=== PATIENT | female | born 1945 | race Caucasian/White ===

== ENCOUNTER 2019-09-08 08:34 | Emergency (ER) | payer MEDICARE, BC, SELFPAY ==
[2019-09-08 08:44] VITALS: BP 185/95; PULSE 63; RESP 18; TEMP 36.8; O2SAT 96; BMI 27.4
--- NOTE | 2019-09-08 08:50 | DI.RAD.S_ITS ---
PROCEDURE: XR CHEST 1V INDICATIONS: cardiac / neuro eval TECHNIQUE: One view of the chest was acquired. COMPARISON: None. FINDINGS: Surgical changes and devices: None. Lungs and pleura: Lungs are clear. No pleural effusions or pneumothorax. Mediastinum: Mediastinal contours appear normal. Heart size is normal. Bones and chest wall: No suspicious bony lesions. Overlying soft tissues appear unremarkable. IMPRESSION: No acute cardiopulmonary disease process. Dictated by: Josi Huertas MD, PhD on 09/08/2019 at 8:18 Approved by: Josi Huertas MD, PhD on 09/08/2019 at 8:18
--- NOTE | 2019-09-08 08:54 | DI.CT.S_ITS ---
PROCEDURE: CT HEAD/BRAIN WO CON INDICATIONS: arm numbness TECHNIQUE: Noncontrast 4.5 mm thick angled axial sections acquired from the foramen magnum to the vertex, with coronal and sagittal reformats. For radiation dose reduction, the following was used: automated exposure control, adjustment of mA and/or kV according to patient size. COMPARISON: None. FINDINGS: Image quality: Excellent. CSF spaces: Basal cisterns are patent. No extra-axial fluid collections. The ventricles are symmetric in size and shape. Brain: No intracranial bleeds or masses. There is mild cerebral volume loss for age, with resultant ventricular and sulcal prominence. There are no periventricular and deep white matter chronic small vessel ischemic changes. There is intracranial internal carotid artery atherosclerosis. Skull and face: Calvarium and visualized facial bones appear intact, without suspicious lesions. Sinuses: Complete opacification of the visualized left maxillary sinus with diffuse visualized left maxillary sinus wall thickening. The mastoids are clear. IMPRESSION: 1. No acute intracranial disease process. 2. Severe, chronic left maxillary sinusitis. Dictated by: Josi Huertas MD, PhD on 09/08/2019 at 8:47 Approved by: Josi Huertas MD, PhD on 09/08/2019 at 8:55
[2019-09-08 08:59] LABS: Add Manual Diff / Slide Review NO; Basophils Absolute Auto 100 /uL (0-100); Basophils Percent Auto 1.1 % (0-2); Eosinophils Absolute Auto 0 /uL (0-450); Eosinophils Percent Auto 0.1 % (2-4); Hematocrit 41.2 % (36-46); Hemoglobin 13.9 g/dL (12.0-16.0); Lymphocytes Absolute Auto 1800 /uL (1100-4500); Mean Corpuscular HGB Conc 33.8 % (30-36); Mean Corpuscular Hemoglobin 31.6 PG (26-34); Mean Corpuscular Volume 93.6 fL (80-100); Monocytes Absolute Auto 500 /uL (0-900); Monocytes Percent Auto 9.1 % (3-14); Neutrophils Absolute Auto 3200 /uL (1500-7000); Neutrophils Percent Auto 57.7 % (50-75); Platelet Count 261 X10^3/uL (150-400); Red Blood Cell Count 4.41 X10^6/uL (4.0-5.2); Red Cell Distribution Width 12.6 % (11.6-14.8); White Blood Cell Count 5.5 X10^3/uL (4.5-11.0)
[2019-09-08 09:12] LABS: Alanine Aminotransferase 18 IU/L (9-52); Albumin 4.3 g/dL (3.5-5.0); Albumin Globulin Ratio 1.3 (1.0-2.8); Alkaline Phosphatase 84 U/L (38-126); Aspartate Aminotransferase 29 IU/L (14-36); Bilirubin Total 0.5 mg/dL (0.2-1.3); Blood Urea Nitrogen 18 mg/dL (7-17); Calcium 9.2 mg/dL (8.4-10.2); Carbon Dioxide 26 mmol/L (22-32); Chloride 103 mmol/L (98-107); Creatine Kinase 207 U/L (30-135); Estimated Glomerular Filt Rate > 60.0 mL/min (>60); Globulin 3.4 g/dL (1.7-4.1); Glucose 105 mg/dL (80-110); HEMOLYSIS < 15 (0-50); Lipase 57 U/L (23-300); Potassium 4.2 mmol/L (3.4-5.1); Sodium 140 mmol/L (137-145); Total Protein 7.7 g/dL (6.3-8.2)
[2019-09-08 09:23] LABS: Troponin I < 0.012 ng/mL (0.01-0.034)
[2019-09-08 09:25] VITALS: BP 151/79; PULSE 57; RESP 12; O2SAT 94
[2019-09-08 09:28] LABS: CKMB % Relative Index 1.6 % (1.5-5.0); Creatine Kinase MB 3.37 ng/mL (<2.37)
[2019-09-08] MEDS: ASPIRIN 81 MG CHEW TAB 324 MG PO (09:31)
[2019-09-08] MEDS: SODIUM CHLORIDE 0.9% 1,000 ML 150 ML IV (09:31)
--- NOTE | 2019-09-08 10:25 | PC.NURSE ---
Patient with intermittent chest pressure for the last 6 months. Intermittent episodes of dizziness. Urine specimen obtained. Patient denies needs at this time. Resting comfortably, pain 0/10 and notices no further tingling in extremities.
[2019-09-08 10:26] VITALS: BP 144/85; PULSE 58; RESP 16; O2SAT 96
--- NOTE | 2019-09-08 10:52 | ED_ITS ---
HPI - Chest Pain General Chief Complaint: Chest Pain Stated Complaint: left arm and chest numbness/tingling x5 weeks Time Seen by Provider: 09/08/19 08:35 Source: patient Mode of arrival: Ambulatory Limitations: no limitations History of Present Illness HPI narrative: 73-year-old female nonsmoker with hypothyroid presents with a chief complaint of 5 weeks of left hand and arm numbness and tingling. She denies any pain nor any weakness. She denies any neck injury or history of the same. She is right handed. She denies any other neurologic symptoms such as blurred vision, trouble with speech nor trouble ambulating. She denies any chest pain or shortness of breath but does state that yesterday the numbness and tingling in her arm might have gone into her chest. She denies any recent long- distance travel or history of clot. She is otherwise well and free of complaint MD complaint: other Onset (ago): week(s) Duration: intermittent Onset: other Severity: mild Quality: other Relieving factors: nothing Exacerbating factors: nothing Associated symptoms: other Treatments prior to arrival chest pain: none Related Data Home Medications Medication Instructions Recorded Confirmed Calcium 500 3 tab PO DAILY 09/08/19 09/08/19 carbamazepine 400 mg PO BID 09/08/19 09/08/19 conjugated estrogens [Premarin] 1 applic VAGINAL 3XW 09/08/19 09/08/19 cyanocobalamin (vitamin B-12) 1,000 mcg IM QMONTH 09/08/19 09/08/19 levothyroxine 137 mcg PO DAILY 09/08/19 09/08/19 multivitamin with minerals 1 tab PO DAILY 09/08/19 09/08/19 triamcinolone acetonide 1 applic TOPICAL DAILY 09/08/19 09/08/19 Allergies Allergy/AdvReac Type Severity Reaction Status Date / Time quinine Allergy Intermediate Verified 09/08/19 10:31 Review of Systems Constitutional Constitutional: Denies chills, Denies fatigue, Denies fever(s), Denies frequent falls, Denies lethargy and Denies weakness Eyes Eyes: Denies change in vision, Denies eye discharge, Denies irritation and Denies loss of vision ENT Ears, Nose, Mouth, and Throat: Denies change in voice, Denies dizziness, Denies neck pain, Denies sore throat and Denies throat swelling Cardiovascular Cardiovascular: Denies chest pain, Denies irregular heart rhythm, Denies lightheadedness, Denies palpitations, Denies dyspnea, Denies dyspnea on exertion and Denies orthopnea Respiratory Respiratory: Denies cough, Denies dyspnea, Denies dyspnea on exertion and Denies wheezing Gastrointestinal Gastrointestinal: Denies abdominal pain, Denies change in bowel habits, Denies diarrhea, Denies nausea and Denies vomiting Genitourinary Genitourinary: Denies hematuria, Denies flank pain, Denies urinary incontinence and Denies urinary urgency Musculoskeletal Musculoskeletal: Denies back pain, Denies muscle weakness, Denies neck pain, Denies numbness and Denies tingling Integumentary/Breasts Skin/Breast: Denies pruritus, Denies erythema, Denies rash and Denies wounds Neurologic Neurologic: Denies behavioral changes, Denies confusion, Denies dizziness, Denies frequent falls, Denies loss of vision, Denies numbness, Denies tingling, Reports paresthesias and Denies weakness Psychiatric Psychiatric: Denies anxiety, Denies behavioral changes, Denies confusion, Denies depression, Denies homicidal ideation and Denies suicidal ideation Endocrine Endocrine: Denies fatigue, Denies flushing and Denies palpitations Hematologic/Lymphatic Hematologic/Lymphatic: Denies easy bruising Allergic/Immunologic Allergic/Immunologic: Denies urticaria, Denies throat swelling and Denies wheezing PFSH Social History Smoking Status: Never smoker Social History Smoking Status: Never smoker Exam Narrative Exam Narrative: GENERAL: [73] year old patient appears stated age. Well- nourished, well-developed patient, in mild distress. HEAD: Atraumatic. Normocephalic. EYES: Pupils equal round and reactive. Extraocular motions intact. No scleral icterus. No injection or drainage. ENT: Nose without bleeding, purulent drainage. Throat without erythema, tonsillar hypertrophy or exudate. Airway patent. NECK: Trachea midline. Non tender CARDIOVASCULAR: Regular rate and rhythm without murmurs, gallops, or rubs. RESPIRATORY: Clear to auscultation. Breath sounds equal bilaterally. No wheezes, rales, or rhonchi. GASTROINTESTINAL: Abdomen soft, non-tender, nondistended. EXTREMITIES: No edema or joint tenderness. BACK: Nontender without deformity or crepitance. No flank tenderness. NEURO: AOx3. SKIN: No rash or erythema of visible areas NIH Stroke Scale 1a. LOC: Patient is alert and keenly responsive (0) 1b. LOC Questions: Patient answers both LOC questions accurately (0) 1c. LOC Commands: Patient performs both tasks correctly (0) 2. Best Gaze: Normal (0) 3. Visual: No visual loss (0) 4. Facial palsy: Normal symmetrical movements (0) 5. Motor arm: No drift (0) 6. Motor leg: No drift (0) 7. Limb ataxia: Absent (0) 8. Sensory: Normal (0) 9. Best language: No aphasia; normal (0) 10. Dysarthria: Normal (0) 11. Extinction and inattention: No abnormality (0) NIHSS: 0 Initial Vital Signs Initial Vital Signs: Vital Signs Temperature 98.2 F 09/08/19 08:44 Pulse Rate 63 09/08/19 08:44 Respiratory Rate 18 09/08/19 08:44 Blood Pressure 185/95 H 09/08/19 08:44 Pulse Oximetry 96 09/08/19 08:44 Course Orders Ordered: Discontinued Medications Aspirin (Aspirin Chew) 324 mg PO NOW ONE Stop: 09/08/19 08:50 Last Admin: 09/08/19 09:31 Dose: 324 mg Documented by: ROHIT Sodium Chloride (Normal Saline 0.9%) 1,000 mls @ 150 mls/hr IV CONT MIKY Last Infusion: 09/08/19 12:07 Dose: 150 mls/hr Documented by: Admin: 09/08/19 09:31 Dose: 150 mls/hr Documented by: ROHIT Vital Signs Vital signs: Vital Signs - 8 hr 09/08/19 10:26 09/08/19 11:00 09/08/19 11:30 Pulse Rate 58 L 53 L 55 L Respiratory Rate 16 12 14 Blood Pressure [Right Arm] 144/85 H 126/65 146/75 H Pulse Oximetry 96 95 98 MDM - Chest Pain Lab Data Result diagrams: 09/08/19 08:50 09/08/19 08:50 Labs: Lab Results 09/08/19 09/08/19 Range/Units 08:50 08:50 WBC 5.5 (4.5-11.0) X10^3/uL RBC 4.41 (4.0-5.2) X10^6/uL Hgb 13.9 (12.0-16.0) g/dL Hct 41.2 (36-46) % MCV 93.6 (80-100) fL MCH 31.6 (26-34) PG MCHC 33.8 (30-36) % RDW 12.6 (11.6-14.8) % Plt Count 261 (150-400) X10^3/uL Neut % (Auto) 57.7 (50-75) % Lymph % (Auto) 32.0 (25-40) % [place] % (Auto) 9.1 (3-14) % Eos % (Auto) 0.1 L (2-4) % Baso % (Auto) 1.1 (0-2) % Neut # (Auto) 3200 (8824-3869) /uL Lymph # (Auto) 1800 (0497-3939) /uL [place] # (Auto) 500 (0-900) /uL Eos # (Auto) 0 (0-450) /uL Baso # (Auto) 100 (0-100) /uL Sodium 140 (137-145) mmol/L Potassium 4.2 (3.4-5.1) mmol/L Chloride 103 (98-107) mmol/L Carbon Dioxide 26 (22-32) mmol/L BUN 18 H (7-17) mg/dL Creatinine 0.90 (0.52-1.04) mg/dL Estimated GFR > 60.0 (>60) mL/min BUN/Creatinine Ratio 20.0 (6-22) Glucose 105 (80-110) mg/dL Calcium 9.2 (8.4-10.2) mg/dL Total Bilirubin 0.5 (0.2-1.3) mg/dL AST 29 (14-36) IU/L ALT 18 (9-52) IU/L Alkaline Phosphatase 84 (38-126) U/L Total Creatine Kinase 207 H (30-135) U/L CK-MB (CK-2) 3.37 H (<2.37) ng/mL CK-MB (CK-2) Rel Index 1.6 (1.5-5.0) % Troponin I < 0.012 (0.01-0.034) ng/mL Total Protein 7.7 (6.3-8.2) g/dL Albumin 4.3 (3.5-5.0) g/dL Globulin 3.4 (1.7-4.1) g/dL Albumin/Globulin Ratio 1.3 (1.0-2.8) Lipase 57 (23-300) U/L Urine Dip Bedside Urine Glucose Negative Bedside Urine Bilirubin - Negative Bedside Urine Ketone - Negative Urine Specific [place] 1.020 Bedside Urine Occult Blood +/- Bedside Urine Protein - Negative Bedside Urine Urobilinogen - Negative Bedside Urine Nitrite - Negative Bedside Urine Leukocytes - Negative Esterase Imaging Data CT scan - head: Radiologist's impression: [address] [address] [address] Scan Report Signed Patient: Susanne Sethi GMR#: [id number] : 5Acct:[id number] Age/Sex: 73 / FDate of Service: 09/08/19 Loc: ED Accession Number: [id number] Procedure: CT head/brain wo con Ordering Provider: Trav De Los Santos D.O. PROCEDURE: CT HEAD/BRAIN WO CON INDICATIONS: arm numbness TECHNIQUE: Noncontrast 4.5 mm thick angled axial sections acquired from the foramen magnum to the vertex, with coronal and sagittal reformats. For radiation dose reduction, the following was used: automated exposure control, adjustment of mA and/or kV according to patient size. COMPARISON: None. FINDINGS: Image quality: Excellent. CSF spaces: Basal cisterns are patent. No extra-axial fluid collections. The ventricles are symmetric in size and shape. Brain: No intracranial bleeds or masses. There is mild cerebral volume loss for age, with resultant ventricular and sulcal prominence. There are no periventricular and deep white matter chronic small vessel ischemic changes. There is intracranial internal carotid artery atherosclerosis. Skull and face: Calvarium and visualized facial bones appear intact, without suspicious lesions. Sinuses: Complete opacification of the visualized left maxillary sinus with diffuse visualized left maxillary sinus wall thickening. The mastoids are clear. IMPRESSION: 1. No acute intracranial disease process. 2. Severe, chronic left maxillary sinusitis. Dictated by: Josi Huertas MD, PhD on 09/08/2019 at 8:47 Approved by: Josi Huertas MD, PhD on 09/08/2019 at 8:55 MDM Narrative Medical decision making narrative: Multiple etiologies for patient's symptoms considered including: [Cardiac ischemia versus stroke versus cervical radiculopathy versus other Multiple causes of chest pain considered including VT, PE, pneumothorax, pneumonia, aortic dissection, and pleurisy. Patient reports no radiation, no diaphoresis, no provocation with exertion, and no vomiting. EKG is nonischemic, troponin unremarkable. Stroke thought less likely given lack of significant findings, a normal CT.] Patient's symptoms improved or duration of stay with above-stated therapies. Findings and discharge diagnosis discussed with patient/family followed by verbalization of understanding Return precautions discussed with patient/family whom verbalize understanding. Discharge Plan Departure Patient Disposition: Home Clinical Impression: Paresthesia of arm Discharge Date/Time: 09/08/19 12:05 Instructions: DI for Atypical Chest Pain Activity Restrictions/Additional Instructions: *You have been diagnosed with [atypical chest pain, paresthesia of the left arm. Cardiac evaluation and CT scan of your brain are very reassuring] *What to do: *Take medications as directed. Start Aspirin daily *Follow up with your primary care provider in 2-3 days, call for an appointment. Let them know you were seen in the Emergency Department and that we ask that you be seen in follow up *Return to ER if you should have any new, worsening or concerning symptoms Prescriptions: No Action levothyroxine 137 mcg tablet 137 mcg PO DAILY RF: 0 cyanocobalamin (vitamin B-12) 1,000 mcg/mL solution 1,000 mcg IM QMONTH RF: 0 Premarin 0.625 mg/gram cream 1 applic vaginal 3XW RF: 0 triamcinolone acetonide 0.1 % ointment 1 applic TOPICAL DAILY RF: 0 carbamazepine 200 mg capsule, ER multiphase 12 hr 400 mg PO BID RF: 0 multivitamin with minerals Tablet 1 tab PO DAILY RF: 0 Calcium 500 3 tab PO DAILY RF: 0 Referrals: Imani Moran ARNP [Primary Care Provider] -
[2019-09-08 11:00] VITALS: BP 126/65; PULSE 53; RESP 12; O2SAT 95
[2019-09-08 11:30] VITALS: BP 146/75; PULSE 55; RESP 14; O2SAT 98
== END 2019-09-08 12:05 | disposition home or self-care (01) ==
PROVIDERS: Emergency Provider Emergency Medicine; PCP Nurse Practitioner Family
DX: R20.2 Paresthesia of skin (principal); R07.89 Other chest pain
CPT/HCPCS: 36415; 70450; 71045; 80053; 81003; 82550; 82553; 83690; 84484; 85025; 93005; 99283; 99285

== ENCOUNTER → 2021-06-12 09:40 | Outpatient (CLI) | payer MEDICARE, BC, SELFPAY ==
--- NOTE | 2021-06-12 | DI.MRI.S_ITS ---
PROCEDURE: MR HEAD/BRAIN WO/W CON INDICATIONS: seizures TECHNIQUE: Noncontrast axial T1 spin echo, axial T2 fast spin echo, sagittal and axial FLAIR, coronal T2 fast spin echo, axial gradient echo, axial diffusion and ADC through the brain. Thin-section coronal T2 weighted images were obtained through the hippocampi. After the administration of contrast, axial and coronal T1 spin echo with fat saturation through the brain. COMPARISON: [facility], CT, CT HEAD/BRAIN WO CON, 09/08/2019, 8:54. FINDINGS: Image quality: Excellent. CSF spaces: Basal cisterns are patent. No extra-axial fluid collections. Ventricles are normal in size and shape. Brain: No midline shift. No intracranial bleeds or masses. No abnormal intracranial enhancement. There is cerebral volume loss for age. There is periventricular white matter chronic small vessel ischemic change. The brainstem appears normal. Diffusion-weighted images demonstrate no acute ischemic insults. No chronic ischemic insults. Normal intravascular flow voids are present. The hippocampi demonstrate an unremarkable, symmetric appearance. Skull and face: Calvarial marrow is normal in signal. Orbits appear normal. Note is made of bilateral lens replacements. Sinuses: There is mild mucosal thickening seen within the left maxillary sinus, with minimal mucosal thickening seen elsewhere. There is mild left mastoid air cell fluid seen. IMPRESSION: Normal brain MRI for age, without a cause of seizures identified. The hippocampi demonstrate a normal, symmetric appearance. No masses or abnormal enhancement can be seen. Improved paranasal sinus disease. A Dictated by: Robi Curry M.D. on 06/12/2021 at 10:12 Approved by: Robi Curry M.D. on 06/12/2021 at 10:14
== END ==
PROVIDERS: PCP Internal Medicine; Referring Provider Internal Medicine; Visit Provider Internal Medicine
DX: R56.9 Unspecified convulsions (principal); R51.9 Headache, unspecified; R42 Dizziness and giddiness
CPT/HCPCS: 70553

== ENCOUNTER → 2021-06-13 14:30 | Outpatient (CLI) | payer MEDICARE, BC, SELFPAY | PROVIDERS: PCP Internal Medicine; Referring Provider Internal Medicine; Visit Provider Internal Medicine | DX: M85.88 Other specified disorders of bone density and structure, other site (principal); Z78.0 Asymptomatic menopausal state; E07.9 Disorder of thyroid, unspecified | CPT/HCPCS: 77080 ==

== ENCOUNTER 2021-09-17 15:59 | Emergency (ER) | payer MEDICARE, BC, SELFPAY ==
[2021-09-17] VITALS (12 sets, daily range): BP systolic 143–215; BP diastolic 73–100; PULSE 63–80; RESP 14–18; TEMP 36.4; O2SAT 77–98
--- NOTE | 2021-09-17 16:10 | DI.RAD.S_ITS ---
PROCEDURE: XR CHEST 1V INDICATIONS: Possible stroke TECHNIQUE: One view of the chest was acquired. COMPARISON: [facility], CR, XR CHEST 1V, 09/08/2019, 8:51. FINDINGS: Surgical changes and devices: None. Lungs and pleura: Lungs are clear. No pleural effusions or pneumothorax. Mediastinum: Mediastinal contours appear normal. Heart size is normal. Bones and chest wall: No suspicious bony lesions. Overlying soft tissues appear unremarkable. IMPRESSION: No acute cardiopulmonary process demonstrated radiographically. Dictated by: Paulo Dumont M.D. on 09/17/2021 at 17:15 Approved by: Paulo Dumont M.D. on 09/17/2021 at 17:16
--- NOTE | 2021-09-17 16:10 | DI.CT.S_ITS ---
PROCEDURE: CT STROKE INDICATIONS: slurred speech, RUE weakness TECHNIQUE: Noncontrast 4.5 mm thick angled axial sections acquired from the foramen magnum to the vertex, with coronal reformats. For radiation dose reduction, the following was used: automated exposure control, adjustment of mA and/or kV according to patient size. COMPARISON: None. FINDINGS: Image quality: Excellent. CSF spaces: Basal cisterns are patent. No extra-axial fluid collections. The ventricles are symmetric in size and shape. Brain: Small amount of subarachnoid hemorrhage noted in left frontal convexity sulci. No intracranial masses. There is cerebral volume loss for age, with resultant ventricular and sulcal prominence. There are periventricular and deep white matter chronic small vessel ischemic changes. There is intracranial internal carotid artery atherosclerosis. Skull and face: Calvarium and visualized facial bones appear intact, without suspicious lesions. Sinuses: Visualized sinuses and mastoids are clear. IMPRESSION: Small amount of left frontal subarachnoid hemorrhage. Findings telephoned to Dr. Beck on September 17, 2021 at 4:50 p.m. This study fulfills neurological imaging criteria for inclusion or exclusion of acute stroke therapies based on available published neurological guidelines. Dictated by: Josi Huertas MD, PhD on 09/17/2021 at 16:48 Approved by: Josi Huertas MD, PhD on 09/17/2021 at 16:52
[2021-09-17] MEDS: diphenhydrAMINE 50 MG/ML VIAL 25 MG IV (16:27)
[2021-09-17] MEDS: methylPREDNISolone 125 MG/2 ML VIAL IV (16:28)
[2021-09-17 16:42] LABS: Add Manual Diff / Slide Review NO; Alanine Aminotransferase 22 IU/L (<35); Albumin 4.2 g/dL (3.5-5.0); Albumin Globulin Ratio 1.4 (1.0-2.8); Alkaline Phosphatase 98 U/L (38-126); Aspartate Aminotransferase 35 IU/L (14-36); BUN Creatinine Ratio 16.3 (6-22); Basophils Absolute Auto 100 /uL (0-100); Bilirubin Total 0.2 mg/dL (0.2-1.3); Blood Urea Nitrogen 14 mg/dL (7-17); Calcium 8.9 mg/dL (8.4-10.2); Carbon Dioxide 24 mmol/L (22-32); Chloride 107 mmol/L (98-107); Creatine Kinase 338 U/L (30-135); Eosinophils Absolute Auto 0 /uL (0-450); Eosinophils Percent Auto 0.1 % (2-4); Estimated Glomerular Filt Rate > 60.0 mL/min (>60); Glucose 112 mg/dL (80-110); HEMOLYSIS < 15 (0-50); Hematocrit 40.5 % (36-46); Hemoglobin 13.5 g/dL (12.0-16.0); Lymphocytes Absolute Auto 2200 /uL (1100-4500); Lymphocytes Percent Auto 33.2 % (25-40); Mean Corpuscular HGB Conc 33.3 % (30-36); Monocytes Absolute Auto 600 /uL (0-900); Monocytes Percent Auto 9.4 % (3-14); Neutrophils Absolute Auto 3700 /uL (1500-7000); Neutrophils Percent Auto 56.3 % (50-75); Platelet Count 259 X10^3/uL (150-400); Potassium 4.2 mmol/L (3.4-5.1); Red Blood Cell Count 4.35 X10^6/uL (4.0-5.2); Red Cell Distribution Width 13.2 % (11.6-14.8); Sodium 138 mmol/L (137-145); Total Protein 7.2 g/dL (6.3-8.2); White Blood Cell Count 6.5 X10^3/uL (4.5-11.0)
--- NOTE | 2021-09-17 16:42 | ED.NEUROSD ---
HPI - Neuro Symptoms/Deficit General Chief Complaint: Neuro Symptoms/Deficit Stated Complaint: Left Hand Problem, Confussed Speech Time Seen by Provider: 09/17/21 16:19 Source: patient and family Mode of arrival: Ambulatory History of Present Illness HPI Narrative: Patient is a 75-year-old female history of hypothyroid, seizure on carbamazepine presenting today with right arm weakness. She said last night will reading her Christian, she had difficulty turning the pages symptoms lasted for about 20-30 minutes and went away. Again today just 20 minutes prior to arrival she had difficulty using her right hand. Her symptoms have now improved in the emergency department. Both she and her state that she is having some speech difficulty in word finding. She is just stuttering a little bit which is abnormal for her but no significant slurring of speech. She has no facial droop. No prior history of stroke or cardiac disease. Last Known Well 330 On Anticoagulants: No Related Data Home Medications Medication Instructions Recorded Confirmed Calcium 500 3 tab PO DAILY 09/08/19 09/08/19 carbamazepine 200 mg 400 mg PO BID 09/08/19 09/08/19 capsule,extended release [id number] conjugated estrogens 0.625 mg/gram 1 applic VAGINAL 3XW 09/08/19 09/08/19 vaginal cream (Premarin) cyanocobalamin (vitamin B-12) 1,000 mcg IM QMONTH 09/08/19 09/08/19 1,000 mcg/mL injection solution levothyroxine 137 mcg tablet 137 mcg PO DAILY 09/08/19 09/08/19 multivitamin with minerals 1 tab PO DAILY 09/08/19 09/08/19 triamcinolone acetonide 0.1 % 1 applic TOPICAL DAILY 09/08/19 09/08/19 topical ointment Allergies Allergy/AdvReac Type Severity Reaction Status Date / Time quinine Allergy Intermediate Verified 09/08/19 10:31 Review of Systems Review of Systems Narrative: GENERAL: Denies chills, fatigue, malaise, fever, sweats, travel HEENT: Denies sinus pain, ear pain, sore throat, difficulty swallowing, neck pain RESPIRATORY: Denies dyspnea, cough, wheezing, hemoptysis, sputum. CARDIOVASCULAR: Denies chest pain, palpitations, orthopnea, edema GASTROINTESTINAL: Denies nausea, vomiting, abdominal pain, diarrhea, constipation, melena. : Denies dysuria, frequency, incontinence, hematuria, urinary retention, flank pain. MUSCULOSKELETAL: Denies weakness, joint pain, or bony pain SKIN: No rash, no erythema, no pruritus NEUROLOGIC: See HPI PSYCHIATRIC: No concerning psychosocial issues. 12 point review of systems is negative except for those stated above and HPI Hematologic/Lymphatic On Anticoagulants: No Patient History Social History Smoking Status: Never smoker Smoking Status: Never smoker alcohol intake frequency: other Substance Use Type: does not use Exam Initial Vital Signs Initial Vital Signs: Vital Signs Temperature 97.5 F L 09/17/21 16:02 Pulse Rate 65 09/17/21 16:02 Respiratory Rate 18 09/17/21 16:02 Blood Pressure 215/100 H 09/17/21 16:02 Pulse Oximetry 96 09/17/21 16:02 GENERAL: Alert well-appearing 75-year-old in no acute distress. HEENT: Head atraumatic,EOMI, pupils reactive, face symmetric, moist mucous membranes CARDIOVASCULAR: Regular rate and rhythm without murmurs, rubs or gallops. RESPIRATORY: Breath sounds equal bilaterally, no wheezes rales or rhonchi. ABDOMEN: Soft, nontender. Normoactive bowel sounds all 4 quadrants. No guarding or rebound. EXTREMITIES: Normal range of motion, no clubbing or edema. Neurovascularly intact NEUROLOGICAL: Alert and oriented x4.Normal gait. Mild stuttering. Cranial nerves II through XII grossly intact. Good [id number], good uqhw-ft-sowj, strength equal bilaterally, no dysarthria or aphasia, sensation in tact to soft touch bilaterally, no visual changes, no facial droop SKIN: Warm, dry, no laceration, no petechiae, no rashes or lesions. Scores NIH Stroke Scale Level of Conciousness: Alert, keenly responsive Ask month/age: Answers both questions correctly. Open/close eyes, close hand: Performs both tasks correctly Best gaze horizontal: Normal Visual fournier: No visual loss Facial palsy: Normal symetrical movement Left arm drift: No drift for full 10 sec Right arm drift: No drift for full 10 sec Left leg drift: No drift for full 5 sec Right leg drift: No drift for full 5 sec Limb ataxia: Absent Sensory on face/arms/legs: Normal, no sensory loss Best language: No aphasia, normal Dysarthria: Normal Extinction or inattention: No abnormality Total NIH Stroke scale score: 0 Course Orders Ordered: ED Orders 09/17/21 16:10 CT Stroke Stat XR chest 1V Stat EKG-12 Lead Stat 09/17/21 16:20 Complete Blood Count AUTO DIFF Stat Comprehensive Metabolic Panel Stat Troponin & CK Cardiac Panel Stat 09/17/21 16:50 COVID19 -Nasal swab/Pre-Proc Stat 09/17/21 17:46 Urine Drug Screen, Rapid Stat Discontinued Medications Diphenhydramine HCl (Diphenhydramine 50 Mg/Ml Vial) 25 mg IV NOW ONE Stop: 09/17/21 16:21 Last Admin: 09/17/21 16:27 Dose: 25 mg Documented by: CUAUHTEMOC Nicardipine HCl 25 mg/ Sodium (Chloride) 250 mls @ 50 mls/hr IV TITRATE MIKY; Protocol Last Titration: 09/17/21 18:18 Dose: 0 mg/hr, 0 mls/hr Documented by: Titration: 09/17/21 18:00 Dose: 7.5 mg/hr, 75 mls/hr Documented by: Admin: 09/17/21 17:07 Dose: 5 mg/hr, 50 mls/hr Documented by: CUAUHTEMOC Methylprednisolone (Methylprednisolone 125 Mg/2 Ml Vial) 125 mg IV NOW ONE Stop: 09/17/21 16:21 Last Admin: 09/17/21 16:28 Dose: 125 mg Documented by: CUAUHTEMOC Morphine Sulfate (Morphine 2 Mg/Ml Inj) 2 mg IV NOW ONE Stop: 09/17/21 17:24 Morphine Sulfate (Morphine 4 Mg/Ml Inj) 2 mg IV NOW ONE Stop: 09/17/21 17:46 Last Admin: 09/17/21 18:00 Dose: 2 mg Documented by: CUAUHTEMOC Vital Signs Vital signs: Vital Signs - 8 hr 09/17/21 16:02 09/17/21 16:50 09/17/21 17:21 Temperature 97.5 F L Pulse Rate 65 63 68 Respiratory Rate 18 14 18 Blood Pressure 215/100 H 171/89 H 154/74 H Pulse Oximetry 96 98 09/17/21 17:30 09/17/21 17:35 09/17/21 17:39 Temperature Pulse Rate 69 70 69 Respiratory Rate 14 Blood Pressure 148/78 H 143/78 H Pulse Oximetry 95 94 95 09/17/21 17:41 09/17/21 17:42 09/17/21 17:47 Temperature Pulse Rate 72 Respiratory Rate Blood Pressure 147/82 H 178/79 H Pulse Oximetry 95 77 L 09/17/21 17:50 09/17/21 17:58 09/17/21 18:00 Temperature Pulse Rate 72 80 Respiratory Rate Blood Pressure 144/73 H Pulse Oximetry 94 92 93 MDM - Neuro Symptoms/Deficit Lab Data Result diagrams: 09/17/21 16:20 09/17/21 16:20 Labs: Lab Results 09/17/21 09/17/21 09/17/21 Range/Units 16:20 16:20 16:50 WBC 6.5 (4.5-11.0) X10^3/uL RBC 4.35 (4.0-5.2) X10^6/uL Hgb 13.5 (12.0-16.0) g/dL Hct 40.5 (36-46) % MCV 93.0 (80-100) fL MCH 31.0 (26-34) PG MCHC 33.3 (30-36) % RDW 13.2 (11.6-14.8) % Plt Count 259 (150-400) X10^3/uL Neut % (Auto) 56.3 (50-75) % Lymph % (Auto) 33.2 (25-40) % [place] % (Auto) 9.4 (3-14) % Eos % (Auto) 0.1 L (2-4) % Baso % (Auto) 1.0 (0-2) % Neut # (Auto) 3700 (1019-8882) /uL Lymph # (Auto) 2200 (5816-5100) /uL [place] # (Auto) 600 (0-900) /uL Eos # (Auto) 0 (0-450) /uL Baso # (Auto) 100 (0-100) /uL Sodium 138 (137-145) mmol/L Potassium 4.2 (3.4-5.1) mmol/L Chloride 107 (98-107) mmol/L Carbon Dioxide 24 (22-32) mmol/L BUN 14 (7-17) mg/dL Creatinine 0.86 (0.52-1.04) mg/dL Estimated GFR > 60.0 (>60) mL/min BUN/Creatinine Ratio 16.3 (6-22) Glucose 112 H (80-110) mg/dL Calcium 8.9 (8.4-10.2) mg/dL Total Bilirubin 0.2 (0.2-1.3) mg/dL AST 35 (14-36) IU/L ALT 22 (<35) IU/L Alkaline Phosphatase 98 (38-126) U/L Total Creatine Kinase 338 H (30-135) U/L CK-MB (CK-2) 4.55 H (<2.37) ng/mL CK-MB (CK-2) Rel Index 1.3 L (1.5-5.0) % Troponin I < 0.012 (0.01-0.034) ng/mL Total Protein 7.2 (6.3-8.2) g/dL Albumin 4.2 (3.5-5.0) g/dL Globulin 3.0 (1.7-4.1) g/dL Albumin/Globulin Ratio 1.4 (1.0-2.8) U Opiates 300ng/mL cut (Negative) Ur Oxycodone Screen (Negative) Urine Methadone Screen (Negative) Ur Barbiturates Screen (Negative) U Tricyclic Antidepress (Negative) Ur Phencyclidine Scrn (Negative) Ur Amphetamines Screen (Negative) U Methamphetamines Scrn (Negative) Ur MDMA Scrn (Ecstasy) (Negative) U Benzodiazepines Scrn (Negative) Urine Cocaine Screen (Negative) U Marijuana (THC) Screen (Negative) SARS-CoV-2 (PCR) Negative (Negative) 09/17/21 Range/Units 17:46 WBC (4.5-11.0) X10^3/uL RBC (4.0-5.2) X10^6/uL Hgb (12.0-16.0) g/dL Hct (36-46) % MCV (80-100) fL MCH (26-34) PG MCHC (30-36) % RDW (11.6-14.8) % Plt Count (150-400) X10^3/uL Neut % (Auto) (50-75) % Lymph % (Auto) (25-40) % [place] % (Auto) (3-14) % Eos % (Auto) (2-4) % Baso % (Auto) (0-2) % Neut # (Auto) (4757-4579) /uL Lymph # (Auto) (5548-7643) /uL [place] # (Auto) (0-900) /uL Eos # (Auto) (0-450) /uL Baso # (Auto) (0-100) /uL Sodium (137-145) mmol/L Potassium (3.4-5.1) mmol/L Chloride (98-107) mmol/L Carbon Dioxide (22-32) mmol/L BUN (7-17) mg/dL Creatinine (0.52-1.04) mg/dL Estimated GFR (>60) mL/min BUN/Creatinine Ratio (6-22) Glucose (80-110) mg/dL Calcium (8.4-10.2) mg/dL Total Bilirubin (0.2-1.3) mg/dL AST (14-36) IU/L ALT (<35) IU/L Alkaline Phosphatase (38-126) U/L Total Creatine Kinase (30-135) U/L CK-MB (CK-2) (<2.37) ng/mL CK-MB (CK-2) Rel Index (1.5-5.0) % Troponin I (0.01-0.034) ng/mL Total Protein (6.3-8.2) g/dL Albumin (3.5-5.0) g/dL Globulin (1.7-4.1) g/dL Albumin/Globulin Ratio (1.0-2.8) U Opiates 300ng/mL cut Negative (Negative) Ur Oxycodone Screen Negative (Negative) Urine Methadone Screen Negative (Negative) Ur Barbiturates Screen Negative (Negative) U Tricyclic Antidepress Negative (Negative) Ur Phencyclidine Scrn Negative (Negative) Ur Amphetamines Screen Negative (Negative) U Methamphetamines Scrn Negative (Negative) Ur MDMA Scrn (Ecstasy) Negative (Negative) U Benzodiazepines Scrn Negative (Negative) Urine Cocaine Screen Negative (Negative) U Marijuana (THC) Screen Negative (Negative) SARS-CoV-2 (PCR) (Negative) Urine Dip Bedside Urine Glucose 100 mg/dl Bedside Urine Ketone - Negative Urine Specific [place] 1.015 Bedside Urine Occult Blood + Bedside Urine pH 6.5 Bedside Urine Protein - Negative Bedside Urine Urobilinogen - Negative Bedside Urine Nitrite - Negative Bedside Urine Leukocytes - Negative Esterase Imaging Data CT scan - head: Radiologist's Impression: PROCEDURE:? CT STROKE ? INDICATIONS:? slurred speech, RUE weakness ? TECHNIQUE:? Noncontrast 4.5 mm thick angled axial sections acquired from the foramen magnum to the vertex, with coronal reformats.? For radiation dose reduction, the following was used:? automated exposure control, adjustment of mA and/or kV according to patient size.? ? COMPARISON:? None. ? FINDINGS:? Image quality:? Excellent.? ? CSF spaces:? Basal cisterns are patent.? No extra-axial fluid collections.? The ventricles are symmetric in size and shape.? ? Brain:? Small amount of subarachnoid hemorrhage noted in left frontal convexity sulci.? No intracranial masses.? There is cerebral volume loss for age, with resultant ventricular and sulcal prominence.? There are periventricular and deep white matter chronic small vessel ischemic changes.? There is intracranial internal carotid artery atherosclerosis.? ? Skull and face:? Calvarium and visualized facial bones appear intact, without suspicious lesions.? ? Sinuses:? Visualized sinuses and mastoids are clear.? ? IMPRESSION:? Small amount of left frontal subarachnoid hemorrhage. ? Findings telephoned to Dr. Beck on September 17, 2021 at 4:50 p.m. ? This study fulfills neurological imaging criteria for inclusion or exclusion of acute stroke therapies based on available published neurological guidelines.? ? ? Dictated by: Josi Huertas MD, PhD on 09/17/2021 at 16:48 ? ? Chest x-ray: Radiologist's Impression: PROCEDURE:? XR CHEST 1V ? INDICATIONS:? Possible stroke ? TECHNIQUE:? One view of the chest was acquired.? ? COMPARISON:? [facility], , XR CHEST 1V, 09/08/2019, 8:51. ? FINDINGS:? ? Surgical changes and devices:? None.? ? Lungs and pleura:? Lungs are clear.? No pleural effusions or pneumothorax.? ? Mediastinum:? Mediastinal contours appear normal.? Heart size is normal.? ? Bones and chest wall:? No suspicious bony lesions.? Overlying soft tissues appear unremarkable.? ? IMPRESSION:? No acute cardiopulmonary process demonstrated radiographically. ? ? Dictated by: Paulo Dumont M.D. on 09/17/2021 at 17:15 ? ? ECG Data Interpretation: Normal sinus rhythm rate 65 WA interval 202 QRS 98 QTC 451 T-wave inversion noted in lead 3 MDM Narrative Medical decision making narrative: Patient has had 2 episodes of right-sided weakness which have resolved another 24 hours. She is still having some speech stuttering. She is allergic to iodine so Solu-Medrol and Benadryl have been ordered. However noncontrast head CT confirms subarachnoid hemorrhage. CT angio is not done. She is started on a nicardipine drip for blood pressure control goal of systolic blood pressure less than [address] Garner, [facility] update on symptoms test results happy expect patient The patient is signed up for airlift at bedside. Critical Care Time Critical Care Time Critical Care Time: Yes Total Critical Care Time: 45 Attestation: The high probability of a clinically significant, sudden or life threatening deterioration of the neurologic system(s) required my full and direct attention, intervention and personal management. The aggregate critical care time was [45] minutes. This time is in addition to time spent performing reported procedures but includes the following: [x] Data Review and interpretation [x] Patient assessment and monitoring of vital signs [x] Documentation [x] Medication orders and management Discharge Plan Departure Patient Disposition: er [facility] Clinical Impression: Subarachnoid hemorrhage Prescriptions: No Action levothyroxine 137 mcg tablet 137 mcg PO DAILY RF: 0 cyanocobalamin (vitamin B-12) 1,000 mcg/mL solution 1,000 mcg IM QMONTH RF: 0 Premarin 0.625 mg/gram cream 1 applic vaginal 3XW RF: 0 triamcinolone acetonide 0.1 % ointment 1 applic TOPICAL DAILY RF: 0 carbamazepine 200 mg capsule, ER multiphase 12 hr 400 mg PO BID RF: 0 multivitamin with minerals Tablet 1 tab PO DAILY RF: 0 Calcium 500 3 tab PO DAILY RF: 0 Referrals: Kirsten Donnelly ARNP [Primary Care Provider] -
[2021-09-17 16:54] LABS: Troponin I < 0.012 ng/mL (0.01-0.034)
[2021-09-17 16:57] LABS: CKMB % Relative Index 1.3 % (1.5-5.0); Creatine Kinase MB 4.55 ng/mL (<2.37)
[2021-09-17] MEDS: NICARDIPINE 25 MG in SODIUM CHLORIDE 0.9% 240 ML 50 ML IV (17:07)
--- NOTE | 2021-09-17 17:11 | PC.NURSE ---
Burke HUSSEIN double check Nicardipine drip
[2021-09-17 17:15] LABS: COVID19 -Nasal RAPID Negative (Negative)
--- NOTE | 2021-09-17 17:28 | PC.NURSE ---
at bedside. Assisted family with [employer] application
[2021-09-17] MEDS: MORPHINE 4 MG/ML INJ 2 MG IV (18:00)
[2021-09-17 18:34] LABS: UR Morphine/Opiate cutoff 300 Negative (Negative); Ur Creatinine Normal (Normal); Ur Specific Gravity Normal (Normal); Urine Amphetamines Negative (Negative); Urine Barbiturates Negative (Negative); Urine Benzodiazepines Negative (Negative); Urine Cocaine Negative (Negative); Urine MDMA Negative (Negative); Urine Methadone Negative (Negative); Urine Methamphetamines Negative (Negative); Urine Oxycodone Negative (Negative); Urine Phencyclidine Negative (Negative); Urine Tetrahydrocannabinol Negative (Negative); Urine Tricyclic Antidepressant Negative (Negative); Urine pH Normal (Normal)
== END 2021-09-17 18:20 | disposition short-term general hospital (02) ==
PROVIDERS: Emergency Provider Emergency Medicine; PCP Internal Medicine
DX: I60.9 Nontraumatic subarachnoid hemorrhage, unspecified (principal); R03.0 Elevated blood-pressure reading, without diagnosis of hypertension; Z20.822 Contact with and (suspected) exposure to COVID-19
CPT/HCPCS: 36415; 70450; 71045; 80053; 80305; 81003; 82550; 82553; 84484; 85025; 87635; 93005; 93010; 96365; 96375; 99285; 99291; C9803; J1200; J2270; J2930

== ENCOUNTER → 2021-10-31 08:00 | Outpatient (CLI) | payer MEDICARE, BC, SELFPAY ==
--- NOTE | 2021-10-31 08:03 | DI.ECHO.S_ITS ---
[facility] +---------+ : : 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 The left ventricle is normal in size and wall thickness. The ejection fraction is estimated to be 60-65%. Diastolic parameters suggest a relaxation abnormality of the left ventricle, consistent with probable normal filling pressures. The right ventricle is normal in size and function. No significant valvular pathology seen. The IVC is of normal diameter and collapses greater than 50% with a sniff. This suggests a low right atrial pressure of 3 mm Hg. There is mild luminal irregularity and echogenicity in the abdominal aorta, suggestive of aortic atherosclerotic disease. Mild atherosclerotic plaque(s) in the aortic arch. In this echo, no obvious evidence of cardiac amyloidosis. There is no significant LV thickness. No increase reflectance of myocardium. No significant diastolic dysfunction. No low voltage EKG changes. Strain examination was not performed. Correlate clinically. Procedure: A two-dimensional transthoracic echocardiogram with color flow and Doppler was performed. The study quality was technically adequate. There is no prior echocardiogram noted for this patient. The patient was in sinus rhythm with heart rates between 59-66 bpm during the exam. Left Ventricle: The left ventricle is normal in size and wall thickness. There is no thrombus. The ejection fraction is estimated to be 60-65%. There are no focal wall motion abnormalities. Diastolic parameters suggest a relaxation abnormality of the left ventricle, consistent with probable normal filling pressures. Right Ventricle: The right ventricle is normal in size and function. Atria: The left atrial size is normal. Right atrial size is normal. There is no Doppler evidence for an interatrial shunt. Mitral Valve: There is mild mitral annular calcification. The mitral valve leaflets appear borderline thickened, but open well. There is trace mitral regurgitation. Aortic Valve: The aortic valve is not well visualized. The aortic valve opens well. The aortic valve is trileaflet. There is no aortic valve stenosis. No aortic regurgitation is present. Tricuspid Valve: The tricuspid valve is normal in structure and function. There is trace tricuspid regurgitation. Pulmonary artery pressures cannot be estimated because of the lack of a measurable TR jet velocity. Pulmonic Valve: The pulmonic valve is not well seen, but is grossly normal. There is a trace or physiologic amount of pulmonic regurgitation. Great Vessels: The aortic root is normal size. The dimensions of the ascending aorta are normal. There is mild luminal irregularity and echogenicity in the abdominal aorta, suggestive of aortic atherosclerotic disease. Mild atherosclerotic plaque(s) in the aortic arch. The IVC is of normal diameter and collapses greater than 50% with a sniff. This suggests a low right atrial pressure of 3 mm Hg. Pericardium/ Pleura There is no pericardial effusion. There is an anterior echo-free space consistent with a fat pad. There is no pleural effusion. MMode/2D Measurements & Calculations LVIDd: 4.2 cm LVOT diam: 2.1 cm LVIDs: 2.7 cm Ao root diam: 3.3 cm FS: 36.2 % asc Aorta Diam: 3.1 cm IVSd: 0.88 cm Ao Arch Diam (Prox Trans): 2.8 cm LVPWd: 0.85 cm LV rodríguez. diameter/BSA (cm/m^2): 2.3 LV sys. diameter/BSA (cm/m^2): 1.5 LA A2 area: 15.8 cm2 RA long axis: 4.4 cm LA A4 area: 16.5 cm2 RA area: 12.6 cm2 LA length (vol): 4.9 cm RA vol: 30.9 ml LA vol: 45.1 ml RA : 16.7 ml/m2 LA vol index: 24.4 ml/m2 IVC diam: 1.4 cm RVD1 (basal): 2.9 cm TAPSE: 1.6 cm Doppler Measurements & Calculations Ao V2 max: 115.3 cm/sec LVOT Max John: 98.5 cm/sec Ao V2 mean: 83.8 cm/sec LV V1 max P.9 mmHg Ao max P.3 mmHg LV V1 VTI: 21.5 cm Ao mean P.0 mmHg LAMONT(I,D): 2.6 cm2 Ao V2 VTI: 27.4 cm LAMONT(V,D): 2.8 cm2 sev ratio: 0.78 LAMONT indexed to BSA (cm^2/m^2): 1.4 MV E max john: 80.8 cm/sec PA V2 max: 89.8 cm/sec MV A max john: 104.1 cm/sec PA V2 mean: 64.2 cm/sec MV E/A: 0.78 PA mean P.8 mmHg Med Peak E' John: 6.0 cm/sec PA pr(Accel): 43.0 mmHg E/E' med: 13.4 Lat Peak E' John: 7.3 cm/sec E/E' lat: 11.1 E/e' average: 12.2 MV dec time: 0.25 sec SV(LVOT): 71.4 ml Reading Physician:10:43 AM
== END ==
PROVIDERS: PCP Internal Medicine; Referring Provider Internal Medicine; Visit Provider Internal Medicine
DX: I63.50 Cerebral infarction due to unspecified occlusion or stenosis of unspecified cerebral artery (principal); E85.4 Organ-limited amyloidosis; I68.0 Cerebral amyloid angiopathy; I70.0 Atherosclerosis of aorta
CPT/HCPCS: 93306

== ENCOUNTER → 2022-10-01 09:16 | Outpatient (CLI) | payer MEDICARE, BC, SELFPAY ==
[2022-10-01 10:19] LABS: Estimated Glomerular Filt Rate 56 mL/min (>60)
--- NOTE | 2022-10-01 10:29 | DI.CT.S_ITS ---
PROCEDURE: CT ANGIO HEAD INDICATIONS: Cerebral aneurysm, nonruptured TECHNIQUE: Precontrast 4.5 mm thick angled axial sections acquired from the foramen magnum to the vertex. After the administration of intravenous contrast, 1 mm thick sections acquired through the [place] of [place]. Postcontrast 4.5 mm thick sections then re-acquired from the foramen magnum to the vertex. 10 mm thick [id number] (MIP) reformats were acquired of the central intracranial vasculature. For radiation dose reduction, the following was used: automated exposure control, adjustment of mA and/or kV according to patient size. COMPARISON: [facility], CT, CT HEAD/BRAIN WO CON, 09/08/2019, 8:54. [facility], MR, MR HEAD/BRAIN WO/W CON, 06/12/2021, 10:08. [facility], CT, CT STROKE, 09/17/2021, 16:37. FINDINGS: Image quality: Excellent. Anterior circulation: Intracranial internal carotid arteries are normal in size and flow. Within the distal portion of the right cavernous segment of the right internal carotid artery, there is an inferiorly directed aneurysm seen, as on series 12, image 79 that measures 33 mm. The flow within the paired anterior cerebral arteries is normal and symmetric. The flow within the middle cerebral arteries is normal and symmetric. The anterior communicating artery is seen. Posterior circulation: Visualized portions of the vertebral arteries demonstrate normal caliber, and join to form a normal appearing basilar artery. There is a prominent right posterior communicating artery seen, with an accompanying diminutive right P1 segment. This is attributed to a type origin of the right posterior cerebral artery, which is considered to be a normal developmental variant of typically no clinical consequence. Flow within the posterior cerebral arteries is normal and symmetric. No aneurysms are seen. CSF spaces: Ventricles are normal in size and shape. Basal cisterns are patent. No extra-axial fluid collections. Brain: No midline shift. No intracranial bleeds or masses. A previously seen left frontal subarachnoid hemorrhage has resolved. Botello-white matter interface appears intact. Skull and face: Calvarium and facial bones appear intact, without suspicious lesions. Incidental note is made of hyperostosis frontalis. This is not considered to be pathologic in a woman of this age. Sinuses: Visualized sinuses and mastoids are clear. 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 The previously seen left sided subarachnoid hemorrhage has resolved. Incidental note is made of: type origin of the right posterior cerebral artery Dictated by: Robi Curry M.D. on 10/01/2022 at 10:18 Approved by: Robi uCrry M.D. on 10/01/2022 at 10:24
== END ==
PROVIDERS: Radiology Diagnostic Radiology; PCP Family Medicine; Referring Provider Physician Assistant; Visit Provider Physician Assistant
DX: I67.1 Cerebral aneurysm, nonruptured (principal)
CPT/HCPCS: 36415; 70496; 82565; Q9967

== ENCOUNTER → 2024-01-23 08:11 | Outpatient (CLI) | payer MEDICARE, SELFPAY ==
[2024-01-23 08:41] LABS: Add Manual Diff / Slide Review NO; Basophils Absolute Auto 0 /uL (0-100); Basophils Percent Auto 0.6 % (0-2); Eosinophils Absolute Auto 0 /uL (0-450); Hematocrit 39.3 % (36-46); Hemoglobin 13.3 g/dL (12.0-16.0); Lymphocytes Absolute Auto 1500 /uL (1100-4500); Lymphocytes Percent Auto 30.3 % (25-40); Mean Corpuscular HGB Conc 33.8 % (30-36); Mean Corpuscular Hemoglobin 31.3 PG (26-34); Mean Corpuscular Volume 92.7 fL (80-100); Monocytes Absolute Auto 500 /uL (0-900); Monocytes Percent Auto 9.4 % (3-14); Neutrophils Absolute Auto 3000 /uL (1500-7000); Neutrophils Percent Auto 59.7 % (50-75); Platelet Count 252 X10^3/uL (150-400); Red Blood Cell Count 4.24 X10^6/uL (4.0-5.2); Red Cell Distribution Width 12.9 % (11.6-14.8); White Blood Cell Count 5.1 X10^3/uL (4.5-11.0)
[2024-01-23 09:07] LABS: Alanine Aminotransferase 19 IU/L (<35); Albumin 3.9 g/dL (3.5-5.0); Albumin Globulin Ratio 1.2 (1.0-2.8); Alkaline Phosphatase 104 U/L (38-126); Aspartate Aminotransferase 27 IU/L (14-36); BUN Creatinine Ratio 19.3 (6-22); Bilirubin Total 0.5 mg/dL (0.2-1.3); Blood Urea Nitrogen 16 mg/dL (7-17); Calcium 8.9 mg/dL (8.4-10.2); Carbon Dioxide 25 mmol/L (22-32); Chloride 107 mmol/L (98-107); Cholesterol 144 mg/dL (140-199); Estimated Glomerular Filt Rate > 60 mL/min (>60); Globulin 3.2 g/dL (1.7-4.1); Glucose 105 mg/dL (80-110); HDL Cholesterol 67 mg/dL (40-60); HEMOLYSIS < 15 (0-50); LDL Cholesterol Calculated 59 mg/dL (<100); Potassium 4.2 mmol/L (3.4-5.1); Sodium 139 mmol/L (137-145); Total Protein 7.1 g/dL (6.3-8.2); Triglycerides 92 mg/dL (35-150)
[2024-01-23 09:20] LABS: Vitamin D 25 Hydroxy (D3) 30.3 ng/mL (30.0-100.0)
[2024-01-23 09:35] LABS: TSH w/ Reflex to FT4 0.13 uIU/mL (0.47-4.68)
[2024-01-23 10:00] LABS: Free T4, Direct Thyroxine 1.17 ng/dL (0.78-2.19)
== END ==
PROVIDERS: PCP Family Medicine; Referring Provider Family Medicine; Visit Provider Family Medicine
DX: E03.9 Hypothyroidism, unspecified (principal); I10 Essential (primary) hypertension; E78.5 Hyperlipidemia, unspecified; G40.909 Epilepsy, unspecified, not intractable, without status epilepticus
CPT/HCPCS: 36415; 80053; 80061; 82306; 84439; 84443; 85025

== ENCOUNTER → 2024-01-29 11:18 | Outpatient (CLI) | payer MEDICARE, SELFPAY ==
--- NOTE | 2024-01-29 11:19 | DI.RAD.S_ITS ---
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 Exam Date: January 29, 2024 Accession number: [id number] Bone Density: Region BMD T-score Z-score Classification AP Spine(L1, L2, L3) 0.790 -2.1 0.4 Osteopenia Femoral Neck (Left) 0.640 -1.9 0.3 Osteopenia Total Hip (Left) 0.830 -0.9 1.0 Normal Femoral Neck (Right) 0.643 -1.9 0.4 Osteopenia Total Hip (Right) 0.782 -1.3 0.6 Osteopenia Total Hip Mean 0.806 -1.1 0.8 Osteopenia World Health Organization criteria for BMD impression classify patients as: Normal (T-score at or above -1.0), Osteopenia (T-score between -1.0 and -2.5), or Osteoporosis (T-score at or below -2.5). 10-year Fracture Risk(1): Major Osteoporotic Fracture 34% Hip Fracture 19% Reported Risk Factors: [place] (), Neck BMD=0.640, BMI=28.6, previous fracture, parental fracture (1) FRAX(R) Version 3.08. Fracture probability calculated for an untreated patient. Fracture probability may be lower if the patient has received treatment. Previous Exams: -- Region Exam Age BMD T-score BMD Change BMD Change Date g/cm2 vs Baseline vs Previous -- AP Spine (L1-L3) 01/29/2024 78 0.790 -2.1 0.002 (0.2%)# 0.002 (0.2%)# 06/13/2021 75 0.788 -2.1 Total Hip(Left) 01/29/2024 78 0.830 -0.9 0.019 (2.3%)# 0.019 (2.3%)# 06/13/2021 75 0.811 -1.1 Total Hip(Right) 01/29/2024 78 0.782 -1.3 -0.006 (-0.8%)# -0.006 (-0.8%)# 06/13/2021 75 0.788 -1.3 -- *Denotes significance at 95% confidence level, LSC for AP Spine = 0.022 g/cm2, LSC for Total Hip = 0.027 g/cm2 # Denotes dissimilar scan types or analysis methods Impression: The patient has low bone mass, based on the Total Spine T-score. The patient has an estimated ten-year risk of hip fracture of 19% and an estimated ten-year risk of major fracture of 34%, based on the WHO FRAX algorithm. The patient has risk factors, including: parental hip fracture, previous fracture. No significant bone loss was observed. Discussion: BONE DENSITY IS LOW AT ONE OR MORE SKELETAL SITES. THE PATIENT'S BMD AND CLINICAL RISK FACTORS CONTRIBUTE TO THIS PATIENT'S HIGH RISK OF FRACTURE. This patient's lowest T-score is low at one or more skeletal sites. It meets the World Health Organization's (WHO) criteria for low bone mass (T-score between -1.0 and -2.5). The patient's 10-year risk of hip fracture and 10 year risk of a major osteoporotic fracture as calculated by FRAX exceeds the threshold where pharmacological therapy is recommended by the National Osteoporosis Foundation (NOF). However, all treatment decisions require clinical judgment and consideration of individual patient factors, including patient preferences, comorbidities, previous drug use, risk factors not captured in the FRAX model (e.g., frailty, falls, vitamin D deficiency, increased bone turnover, interval significant decline in bone density) and possible under or overestimation of fracture risk by FRAX. The patient should follow a healthful lifestyle (good nutrition with adequate calcium and vitamin D, and appropriate weight-bearing exercise). Follow-Up: Consider a repeat BMD and Vertebral Fracture Assessment (VFA) exam in 2 years or sooner if medically necessary, to reassess this patient's status. Reported by: CHAITANYA WALTER M.D. on 01/29/2024 11:43:00 AM.
== END ==
LOC: RAD 11:19
PROVIDERS: PCP Family Medicine; Referring Provider Family Medicine; Visit Provider Family Medicine
DX: N95.8 Other specified menopausal and perimenopausal disorders (principal); M85.88 Other specified disorders of bone density and structure, other site
CPT/HCPCS: 77080

== ENCOUNTER → 2024-03-07 13:39 | Outpatient (CLI) | payer MEDICARE, SELFPAY ==
[2024-03-07 14:17] LABS: Bilirubin Urine UA NEGATIVE (NEGATIVE); Color Urine UA YELLOW; Glucose Urine UA NEGATIVE (Negative); Ketones Urine UA NEGATIVE (NEGATIVE); Leukocyte Esterase Urine UA 1+ (NEGATIVE); Nitrite Urine UA POSITIVE (Negative); Occult Blood Urine UA 1+ (Negative); Protein Urine UA NEGATIVE (Negative); Specific Gravity Urine UA 1.015 (1.000-1.035); Urobilinogen Urine UA 0.2 E.U./dL (0.2)
[2024-03-07 14:18] LABS: Appearance Urine UA SL CLOUDY; pH Urine UA 5.5 (4.5-8.0)
[2024-03-07 14:27] LABS: Bacteria Urine Many (>30); RBC Urine None Seen (0-5/HPF); Squamous Epithelial Cell Urine None Seen (0-5/HPF); Urine Volume 10mL (spun); WBC Urine 5-10/HPF (0-5/HPF)
[2024-03-07 14:29] LABS: Culture Indicated Urine Specimen Cultured
== END ==
PROVIDERS: PCP Family Medicine; Visit Provider Physician Assistant Medical
DX: R39.9 Unspecified symptoms and signs involving the genitourinary system (principal)
CPT/HCPCS: 81001; 87077; 87086; 87186

== ENCOUNTER → 2024-08-12 14:42 | Outpatient (CLI) | payer MEDICARE, SELFPAY ==
[2024-08-12 15:23] LABS: Estimated Glomerular Filt Rate > 60 mL/min (>60)
== END ==
LOC: LAB 14:46
PROVIDERS: Radiology Diagnostic Radiology; PCP Family Medicine; Referring Provider Family Medicine; Visit Provider Family Medicine
DX: E85.4 Organ-limited amyloidosis (principal)
CPT/HCPCS: 36415; 82565

== ENCOUNTER → 2024-08-18 13:14 | Outpatient (CLI) | payer MEDICARE, SELFPAY ==
--- NOTE | 2024-08-18 13:14 | DI.CT.S_ITS ---
PROCEDURE: CT ANGIO HEAD AND NECK INDICATIONS: cerebral amyloid angiopathy TECHNIQUE: After the administration of intravenous contrast, 1 mm thick sections acquired from the aortic arch through the [place] of [place]. 3-dimensional rcpsqrk-nqwxdsyus-gwwvczeexo (MIP) and/or volume rendering reformats were acquired of the central intracranial vasculature and neck separately. For radiation dose reduction, the following was used: automated exposure control, adjustment of mA and/or kV according to patient size. COMPARISON: [facility], CT, CT ANGIO HEAD, 10/01/2022, 10:24. [facility], MR, MR HEAD/BRAIN WO CON, 08/18/2024, 13:50. [facility], MR, MR HEAD/BRAIN WO/W CON, 06/12/2021, 10:08. FINDINGS: Image quality: Diagnostic. BRAIN: CSF spaces: Ventricles are normal in size and shape. Basal cisterns are patent. No extra-axial fluid collections. Brain: No significant abnormality of the brain can be seen. Skull and face: Calvarium and facial bones appear intact, without suspicious lesions. Orbits appear normal. Sinuses: Sinuses and mastoids are clear. HEAD CT ANGIOGRAPHY: Anterior circulation: Intracranial internal carotid arteries are normal in size and flow. The flow within the paired anterior cerebral arteries is normal and symmetric. The flow within the middle cerebral arteries is normal and symmetric. The anterior communicating artery is seen 3 millimeter inferiorly oriented aneurysm involving the ophthalmic segment of the right internal carotid artery is stable. Posterior circulation: Visualized portions of the vertebral arteries demonstrate normal caliber, and join to form a normal appearing basilar artery. Flow within the posterior cerebral arteries is normal and symmetric. Posterior cerebral arteries have origins. No aneurysms are seen. NECK CT ANGIOGRAPHY: Carotid system: The great vessels demonstrate a conventional anatomy as they arise from the aortic arch. The origins of the common carotid arteries appear patent. The common carotid arteries demonstrate normal caliber and courses. The bifurcation regions are both widely patent. The internal carotid arteries demonstrate normal calibers and courses. Posterior circulation: The origins of the vertebral arteries both appear widely patent. The more superior extracranial portions of both vertebral arteries also demonstrate normal courses and calibers. They join to form a normal appearing basilar artery. Soft tissues: Visualized neck soft tissues demonstrate no suspicious abnormalities. Bones: No suspicious bony lesions. Visualized cervical spine appears normally aligned. Spine degenerative disc disease and facet arthropathy. IMPRESSION: No acute intracranial disease process. No large vessel occlusion, vascular stenosis or vascular dissection. 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 Any quantitative measurements of stenosis were performed using NASCET criteria. Dictated by: Josi Huertas MD, PhD on 08/19/2024 at 9:40 Approved by: Josi Huertas MD, PhD on 08/19/2024 at 9:57
--- NOTE | 2024-08-18 13:14 | DI.MRI.S_ITS ---
PROCEDURE: MR HEAD/BRAIN WO CON INDICATIONS: Cerebral amyloid angiopathy TECHNIQUE: Non-contrast axial T1 spin echo, axial T2 fast spin echo, sagittal and axial FLAIR, coronal T2 fast spin echo, axial gradient echo, axial diffusion and ADC through the brain. COMPARISON: [facility], CT, CT ANGIO HEAD AND NECK, 08/18/2024, 13:26. [facility], CT, CT ANGIO HEAD, 10/01/2022, 10:24. [facility], CT, CT STROKE, 09/17/2021, 16:37. [facility], MR, MR HEAD/BRAIN WO/W CON, 06/12/2021, 10:08. [facility], CT, CT HEAD/BRAIN WO CON, 09/08/2019, 8:54. FINDINGS: Image quality: Excellent. CSF spaces: Ventricles appear symmetric in size and shape. Basal cisterns are patent. No extra-axial fluid collections. Brain: No intracranial bleeds or mass effects. There is cerebral volume loss for age. There are periventricular and deep white matter chronic small vessel ischemic changes. Brainstem appears normal. Diffusion-weighted images show no acute infarct. No chronic ischemic insults. Normal intravascular flow voids are present. Skull and face: Calvarial bone marrow is normal in signal. Orbits are normal. Sinuses: Sinuses and mastoids are clear. IMPRESSION: 1. No acute intracranial process. 2. Moderate atrophy and chronic microvascular ischemic changes. 3. No imaging features amyloid angiopathy. Dictated by: Jacquie Russell M.D. on 08/18/2024 at 21:01 Approved by: Jacquie Russell M.D. on 08/18/2024 at 21:27
== END ==
LOC: CT 13:14
PROVIDERS: PCP Family Medicine; Referring Provider Family Medicine; Visit Provider Family Medicine
DX: E85.4 Organ-limited amyloidosis (principal); I68.0 Cerebral amyloid angiopathy; I67.1 Cerebral aneurysm, nonruptured
CPT/HCPCS: 70496; 70498; 70551; Q9967

== ENCOUNTER → 2024-10-27 10:14 | Outpatient (CLI) | payer MEDICARE, SELFPAY | PROVIDERS: PCP Family Medicine; Visit Provider Physician Assistant Medical | DX: R30.0 Dysuria (principal) | CPT/HCPCS: 87086 ==

== ENCOUNTER → 2024-11-02 11:49 | Outpatient (CLI) | payer MEDICARE, SELFPAY | PROVIDERS: PCP Family Medicine; Visit Provider Family Medicine | DX: R35.0 Frequency of micturition (principal) | CPT/HCPCS: 87086 ==

== ENCOUNTER → 2024-11-02 12:59 | Outpatient (CLI) | payer MEDICARE, SELFPAY ==
--- NOTE | 2024-11-02 13:00 | DI.RAD.S_ITS ---
PROCEDURE: XR LUMBAR SPINE 2-3V INDICATIONS: Low back pain TECHNIQUE: 3 views of the lumbar spine were acquired. COMPARISON: None. FINDINGS: Bones: 5 [id number] vertebrae are present. There is trace anterolisthesis of L4 on L5. Multilevel degenerative disc and foraminal narrowing are present most severe at L5-S1. No vertebral body compression fractures. No suspicious bony lesions. Soft tissues: Overlying bowel gas pattern is normal. No suspicious soft tissue calcifications. IMPRESSION: Degenerative changes most severe at L5-S1. Dictated by: Jacquie Russell M.D. on 11/02/2024 at 15:45 Approved by: Jacquie Russell M.D. on 11/02/2024 at 15:46
== END ==
PROVIDERS: PCP Family Medicine; Referring Provider Family Medicine; Visit Provider Family Medicine
DX: M47.817 Spondylosis without myelopathy or radiculopathy, lumbosacral region (principal); M54.50 Low back pain, unspecified
CPT/HCPCS: 72100; 87086

== ENCOUNTER → 2024-11-03 08:32 | Outpatient (CLI) | payer MEDICARE, SELFPAY ==
[2024-11-03 09:12] LABS: Add Manual Diff / Slide Review NO; Basophils Absolute Auto 0 /uL (0-100); Basophils Percent Auto 0.5 % (0-2); Eosinophils Absolute Auto 0 /uL (0-450); Hemoglobin 13.9 g/dL (12.0-16.0); Lymphocytes Absolute Auto 1400 /uL (1100-4500); Lymphocytes Percent Auto 27.8 % (25-40); Mean Corpuscular Hemoglobin 31.1 PG (26-34); Mean Corpuscular Volume 94.5 fL (80-100); Monocytes Absolute Auto 500 /uL (0-900); Monocytes Percent Auto 9.5 % (3-14); Neutrophils Absolute Auto 3000 /uL (1500-7000); Neutrophils Percent Auto 62.2 % (50-75); Platelet Count 263 X10^3/uL (150-400); Red Blood Cell Count 4.45 X10^6/uL (4.0-5.2); Red Cell Distribution Width 12.8 % (11.6-14.8); White Blood Cell Count 4.9 X10^3/uL (4.5-11.0)
[2024-11-03 09:38] LABS: HEMOLYSIS < 15 (0-50); Iron 151 ug/dL (37-170)
[2024-11-03 09:44] LABS: Alanine Aminotransferase 22 IU/L (<35); Albumin 4.1 g/dL (3.5-5.0); Albumin Globulin Ratio 1.6 (1.0-2.8); Alkaline Phosphatase 98 U/L (38-126); Aspartate Aminotransferase 27 IU/L (14-36); BUN Creatinine Ratio 18.5 (6-22); Bilirubin Total 0.5 mg/dL (0.2-1.3); Blood Urea Nitrogen 15 mg/dL (7-17); Calcium 9.3 mg/dL (8.4-10.2); Carbon Dioxide 24 mmol/L (22-32); Chloride 107 mmol/L (98-107); Cholesterol 151 mg/dL (140-199); Estimated Glomerular Filt Rate > 60 mL/min (>60); Globulin 2.5 g/dL (1.7-4.1); Glucose 101 mg/dL (80-110); HDL Cholesterol 69 mg/dL (40-60); LDL Cholesterol Calculated 60 mg/dL (<100); Potassium 4.2 mmol/L (3.4-5.1); Sodium 138 mmol/L (137-145); Total Protein 6.6 g/dL (6.3-8.2); Triglycerides 110 mg/dL (35-150)
[2024-11-03 09:54] LABS: Percent Iron Saturation 59 % (15-50); Total Iron Binding Capacity 254 ug/dL (265-497); Transferrin 230 mg/dL (206-381)
[2024-11-03 10:12] LABS: TSH w/ Reflex to FT4 < 0.02 uIU/mL (0.47-4.68)
[2024-11-03 10:16] LABS: Ferritin 36 ng/mL (11-264)
[2024-11-03 10:42] LABS: Free T4, Direct Thyroxine 1.08 ng/dL (0.78-2.19)
[2024-11-04 03:36] LABS: Carbamazepine Tegretol Level 9.3 ug/mL (4.0-12.0)
== END ==
PROVIDERS: PCP Family Medicine; Referring Provider Family Medicine; Visit Provider Family Medicine
DX: R53.83 Other fatigue (principal); E03.9 Hypothyroidism, unspecified; R41.3 Other amnesia; I10 Essential (primary) hypertension; G40.909 Epilepsy, unspecified, not intractable, without status epilepticus; E78.5 Hyperlipidemia, unspecified; L30.9 Dermatitis, unspecified; M54.50 Low back pain, unspecified; R39.9 Unspecified symptoms and signs involving the genitourinary system; R35.0 Frequency of micturition
CPT/HCPCS: 36415; 80053; 80061; 80156; 82728; 83540; 83550; 84439; 84443; 85025

== ENCOUNTER → 2025-11-17 12:28 | Outpatient (CLI) | payer MEDICARE, SELFPAY | PROVIDERS: PCP Family Medicine; Visit Provider Physician Assistant | DX: N89.8 Other specified noninflammatory disorders of vagina (principal) | CPT/HCPCS: 87210 ==